=== PATIENT | female | born 1970 | race Caucasian/White ===

== ENCOUNTER → 2016-07-14 | Outpatient (CLI) | payer BC ==
[~2016-07-14] MED LIST: PROBIOTIC FORMU1 CAP PO; [UNRECOGNIZED DRUG - OTHER] PO
== END ==
LOC: MC.RAD 07:57
DX: D24.1 Benign neoplasm of right breast (principal); Z80.3 Family history of malignant neoplasm of breast

== ENCOUNTER → 2017-08-22 | Outpatient (CLI) | payer BC | LOC: MC.RAD 11:28 | DX: Z12.31 Encounter for screening mammogram for malignant neoplasm of breast (principal); Z98.82 Breast implant status ==

== ENCOUNTER → 2018-12-11 | Outpatient (CLI) | payer BC | LOC: MC.RAD 11-03 08:15 | DX: Z12.31 Encounter for screening mammogram for malignant neoplasm of breast (principal); Z98.82 Breast implant status ==

== ENCOUNTER → 2020-01-15 | Outpatient (CLI) | payer BC | LOC: MC.RAD 16:11 | DX: Z12.31 Encounter for screening mammogram for malignant neoplasm of breast (principal); R92.2 Inconclusive mammogram; N63.20 Unspecified lump in the left breast, unspecified quadrant; Z98.82 Breast implant status ==